=== PATIENT | female | born 1955 | race Hispanic/Latino ===

== ENCOUNTER 2017-07-27 11:09 | Emergency (ER) | payer MEDICARE ==
[2017-07-27 11:39] LABS: BASOPHILS % (AUTO) 0.7 % (0.0-5.0); EOSINOPHILS % (AUTO) 2.2 % (0.0-8.0); LYMPHOCYTES % (AUTO) 16.5 % (21.0-51.0); MEAN CORPUSCULAR HEMOGLOBIN 29.1 pg (27.0-33.0); MEAN CORPUSCULAR HGB CONC 33.8 g/dL (32.0-36.0); MEAN CORPUSCULAR VOLUME 86.2 fL (79-99); MONOCYTES % (AUTO) 6.2 % (3.0-13.0); NEUTROPHILS % (AUTO) 74.4 % (40.0-77.0); PLATELET COUNT (AUTO) 271 K/uL (130-400); RED CELL DISTRIBUTION WIDTH 13.2 % (11.0-15.5); WHITE BLOOD COUNT (AUTO) 10.1 K/uL (4.8-10.8)
[2017-07-27 11:46] LABS: CREATININE 0.7 mg/dL (0.5-1.5); POTASSIUM 3.8 mmol/L (3.5-5.1)
[2017-07-27 11:50] LABS: INR 0.9 (0.85-1.15); PARTIAL THROMBOPLASTIN TIME 26.5 SEC (26.3-35.5); PROTHROMBIN TIME 9.5 SEC (9.6-11.6)
[2017-07-27 12:01] LABS: ALBUMIN 3.6 g/dL (3.5-5.0); BILIRUBIN,TOTAL 0.4 mg/dL (0.2-1.0); CREATINE KINASE MB 1.3 ng/mL (0.5-3.6); TOTAL PROTEIN, SERUM 7.2 g/dL (6.0-8.3)
[2017-07-27] MEDS ORDERED: ASPIRIN 81MG TAB.CHEW ONE (12:51)
[2017-07-27] MEDS ORDERED: SODIUM CHLORIDE 0.9% 250 ML IV ONE (12:52)
== END 2017-07-27 13:39 | disposition home or self-care (01) ==
LOC: EDH 11:09
DX: R07.89 Other chest pain (principal); I25.10 Atherosclerotic heart disease of native coronary artery without angina pectoris; I10 Essential (primary) hypertension; E78.5 Hyperlipidemia, unspecified; Z95.1 Presence of aortocoronary bypass graft
CPT/HCPCS: 36415; 71010; 80053; 82550; 82553; 84484; 85025; 85610; 85730; 93005; 96360; 99285; J7030

== ENCOUNTER 2017-10-24 23:23 | Emergency (ER) | payer MEDICARE ==
[2017-10-25 00:18] LABS: APPEARANCE,URINE Clear (CLEAR); BILIRUBIN,URINE Negative (NEGATIVE); COLOR,URINE Yellow (YELLOW); GLUCOSE, URINE (UA) Negative (NEGATIVE); KETONES,URINE Negative (NEGATIVE); LEUKOCYTE ESTERASE ,URINE Trace (NEGATIVE); NITRATE,URINE Negative (NEGATIVE); OCCULT BLOOD,URINE Negative (NEGATIVE); PROTEIN,URINE Negative (NEGATIVE)
[2017-10-25] MEDS ORDERED: HYDROCODONE/ACETAMINOPHEN 5/325 MG TAB ONE (00:26)
[2017-10-25 00:36] LABS: BACTERIA,URINE None Seen /HPF (None Seen); HYALINE CASTS, URINE 0-1 /LPF (0-1 /LPF); MUCUS,URINE Few LPF (None Seen); RBC,URINE 0-1 /HPF (0-1); WBC,URINE 0-1 /HPF (0-1)
[2017-10-25 01:08] LABS: BASOPHILS % (AUTO) 0.8 % (0.0-5.0); EOSINOPHILS % (AUTO) 2.6 % (0.0-8.0); HEMATOCRIT 42.1 % (36-48); LYMPHOCYTES % (AUTO) 25.4 % (21.0-51.0); MEAN CORPUSCULAR HEMOGLOBIN 29.1 pg (27.0-33.0); MEAN CORPUSCULAR HGB CONC 34.3 g/dL (32.0-36.0); MEAN CORPUSCULAR VOLUME 84.9 fL (79-99); MONOCYTES % (AUTO) 7.8 % (3.0-13.0); NEUTROPHILS % (AUTO) 63.4 % (40.0-77.0); PLATELET COUNT (AUTO) 376 K/uL (130-400); RED BLOOD CELL COUNT(AUTO) 4.96 MIL/uL (4.00-5.50); RED CELL DISTRIBUTION WIDTH 13.1 % (11.0-15.5); WHITE BLOOD COUNT (AUTO) 10.3 K/uL (4.8-10.8)
[2017-10-25 01:16] LABS: CARBON DIOXIDE 29 mmol/L (21-32); CHLORIDE 105 mmol/L (101-111); CREATININE 0.9 mg/dL (0.5-1.5); GLOMERULAR FILTR. RATE CALC 67 mL/min (>60); GLUCOSE,RANDOM 131 mg/dL (70-105); POTASSIUM 3.7 mmol/L (3.5-5.1); SODIUM SERUM 144 mmol/L (136-145); UREA NITROGEN, BLOOD 22 mg/dL (7-18)
[2017-10-25 01:20] LABS: ALANINE AMINOTRANSFERASE 19 U/L (12-78); ALBUMIN 3.8 g/dL (3.5-5.0); ASPARTATE AMINOTRANSFERASE 14 U/L (10-37); BILIRUBIN,TOTAL 0.3 mg/dL (0.2-1.0); TOTAL PROTEIN, SERUM 7.7 g/dL (6.0-8.3)
[2017-10-25 01:23] LABS: LIPASE < 50 U/L (114-286)
[2017-10-25] MEDS ORDERED: KETOROLAC TROMETHAMINE 15MG/ML ONE (01:28)
== END 2017-10-25 03:07 | disposition home or self-care (01) ==
LOC: EDH 23:23
DX: R10.31 Right lower quadrant pain (principal); H57.8 Other specified disorders of eye and adnexa; R20.2 Paresthesia of skin
CPT/HCPCS: 36415; 70450; 74176; 80053; 81001; 83690; 85025; 96374; 99285; J1885

== ENCOUNTER 2017-11-19 20:16 | Emergency (ER) | payer MEDICARE ==
[2017-11-19 21:10] LABS: BASOPHILS % (AUTO) 0.6 % (0.0-5.0); EOSINOPHILS % (AUTO) 0.1 % (0.0-8.0); HEMATOCRIT 40.1 % (36-48); LYMPHOCYTES % (AUTO) 7.3 % (21.0-51.0); MEAN CORPUSCULAR HEMOGLOBIN 29.3 pg (27.0-33.0); MEAN CORPUSCULAR HGB CONC 34.3 g/dL (32.0-36.0); MEAN CORPUSCULAR VOLUME 85.4 fL (79-99); MONOCYTES % (AUTO) 2.2 % (3.0-13.0); NEUTROPHILS % (AUTO) 89.8 % (40.0-77.0); PLATELET COUNT (AUTO) 366 K/uL (130-400); RED BLOOD CELL COUNT(AUTO) 4.69 MIL/uL (4.00-5.50); RED CELL DISTRIBUTION WIDTH 13.2 % (11.0-15.5); WHITE BLOOD COUNT (AUTO) 13.3 K/uL (4.8-10.8)
[2017-11-19 21:21] LABS: POTASSIUM 4.4 mmol/L (3.5-5.1)
[2017-11-19 21:26] LABS: ALBUMIN 3.6 g/dL (3.5-5.0); BILIRUBIN,TOTAL 0.2 mg/dL (0.2-1.0); TOTAL PROTEIN, SERUM 7.5 g/dL (6.0-8.3)
== END 2017-11-20 02:24 | disposition home or self-care (01) ==
LOC: EDH 20:16
DX: G97.1 Other reaction to spinal and lumbar puncture (principal); R53.1 Weakness; R20.2 Paresthesia of skin; I25.10 Atherosclerotic heart disease of native coronary artery without angina pectoris; I10 Essential (primary) hypertension; E78.00 Pure hypercholesterolemia, unspecified; M81.0 Age-related osteoporosis without current pathological fracture; Z95.1 Presence of aortocoronary bypass graft
CPT/HCPCS: 36415; 72148; 80053; 85025

== ENCOUNTER → 2018-01-04 | Outpatient (CLI) | payer MEDICARE ==
[~2018-01-04] MED LIST: AMLODIPINE DAILY PO; CLIN300C9 PO; DULOXETINE; ISOS30TA6 PO; LISI-617 PO; PREGABALIN; SIMV40TA59 PO
== END | disposition home or self-care (01) ==
LOC: SHCH 11:56
PROVIDERS: ATTEND Internal Medicine Cardiovascular Disease
DX: R09.89 Other specified symptoms and signs involving the circulatory and respiratory systems (principal); I65.23 Occlusion and stenosis of bilateral carotid arteries
CPT/HCPCS: 93880

== ENCOUNTER → 2018-01-07 | Outpatient (CLI) | payer MEDICARE | END | disposition home or self-care (01) | LOC: SHCH 10:19 | PROVIDERS: ATTEND Internal Medicine Cardiovascular Disease | DX: R07.9 Chest pain, unspecified (principal); R06.02 Shortness of breath | CPT/HCPCS: 93306 ==

== ENCOUNTER 2018-01-15 21:10 | Observation (INO) | payer MEDICARE ==
[~2018-01-15] VITALS: Ht 152.4 cm; Wt 57.6 kg
[2018-01-15 21:57] LABS: BASOPHILS % (AUTO) 0.9 % (0.0-5.0); EOSINOPHILS % (AUTO) 2.8 % (0.0-8.0); HEMATOCRIT 36.5 % (36-48); LYMPHOCYTES % (AUTO) 22.3 % (21.0-51.0); MEAN CORPUSCULAR HEMOGLOBIN 29.3 pg (27.0-33.0); MEAN CORPUSCULAR HGB CONC 34.4 g/dL (32.0-36.0); MEAN CORPUSCULAR VOLUME 85.2 fL (79-99); MONOCYTES % (AUTO) 6.4 % (3.0-13.0); NEUTROPHILS % (AUTO) 67.6 % (40.0-77.0); PLATELET COUNT (AUTO) 310 K/uL (130-400); RED BLOOD CELL COUNT(AUTO) 4.28 MIL/uL (4.00-5.50); RED CELL DISTRIBUTION WIDTH 13.3 % (11.0-15.5); WHITE BLOOD COUNT (AUTO) 10.1 K/uL (4.8-10.8)
[2018-01-15 22:07] LABS: CREATININE 0.9 mg/dL (0.5-1.5); POTASSIUM 3.9 mmol/L (3.5-5.1)
[2018-01-15 22:08] LABS: INR 0.93 (0.85-1.15); PARTIAL THROMBOPLASTIN TIME 26.8 SEC (26.3-35.5); PROTHROMBIN TIME 9.8 SEC (9.6-11.6)
[2018-01-15 22:20] LABS: ALBUMIN 3.6 g/dL (3.5-5.0); BILIRUBIN,TOTAL 0.3 mg/dL (0.2-1.0); CREATINE KINASE MB 0.6 ng/mL (0.5-3.6); TOTAL PROTEIN, SERUM 7.2 g/dL (6.0-8.3)
[2018-01-15] MEDS ORDERED: MECLIZINE HCL 25 MG TABLET ONE (23:01)
[2018-01-16] MEDS ORDERED: CLONIDINE HCL 0.1 MG TABLET ONE ×2 (00:09→00:13)
[2018-01-16] MEDS ORDERED: KETOROLAC TROMETHAMINE 15MG/ML ONE (00:09)
[2018-01-16] MEDS ORDERED: ONDANSETRON HCL MDV 20ML 2 MG/ML VIAL IVP PRN (00:45)
[2018-01-16 05:14] LABS: BASOPHILS % (AUTO) 0.9 % (0.0-5.0); HEMATOCRIT 34.7 % (36-48); LYMPHOCYTES % (AUTO) 29.4 % (21.0-51.0); MEAN CORPUSCULAR HEMOGLOBIN 29.6 pg (27.0-33.0); MEAN CORPUSCULAR VOLUME 84.6 fL (79-99); MONOCYTES % (AUTO) 6.5 % (3.0-13.0); NEUTROPHILS % (AUTO) 60.2 % (40.0-77.0); PLATELET COUNT (AUTO) 319 K/uL (130-400); RED BLOOD CELL COUNT(AUTO) 4.11 MIL/uL (4.00-5.50); WHITE BLOOD COUNT (AUTO) 8.6 K/uL (4.8-10.8)
[2018-01-16 05:23] LABS: ALBUMIN 3.2 g/dL (3.5-5.0); BILIRUBIN,TOTAL 0.3 mg/dL (0.2-1.0); CREATININE 0.7 mg/dL (0.5-1.5); POTASSIUM 3.4 mmol/L (3.5-5.1); TOTAL PROTEIN, SERUM 6.5 g/dL (6.0-8.3)
[2018-01-16] MEDS: FAMOTIDINE/PF 20 MG/2 ML VIAL IV SCH ×2 (09:00→20:16)
[2018-01-16] MEDS ORDERED: FAMOTIDINE/PF 20 MG/2 ML VIAL IV ONE (10:27)
[2018-01-16] MEDS ORDERED: MECLIZINE HCL 25 MG TABLET ONE (10:27)
[2018-01-16] MEDS ORDERED: PREGABALIN (15:25)
[2018-01-16] MEDS ORDERED: CLIN300C9 PO (15:25)
[2018-01-16] MEDS ORDERED: SIMV40TA59 PO (15:25)
[2018-01-16] MEDS ORDERED: ISOS30TA6 PO (15:25)
[2018-01-16] MEDS ORDERED: DULOXETINE (15:25)
[2018-01-16] MEDS ORDERED: AMLODIPINE DAILY PO (15:25)
[2018-01-16 15:47] VITALS: BP 182/89
[2018-01-16] MEDS: HYDRALAZINE HCL 20 MG/ML VIAL IV PRN ×2 (16:57→23:24)
[2018-01-16 19:00] VITALS: BP 161/71
[2018-01-17] VITALS: BP 178/85
[2018-01-17] MEDS ORDERED: MORPHINE SULFATE 2 MG/ML 1ML SYG IVP PRN
[2018-01-17] MEDS ORDERED: ACETAMINOPHEN 325 MG TAB PO PRN
[2018-01-17] MEDS ORDERED: ACETAMINOPHEN 325 MG TAB ONE (00:11)
[2018-01-17] MEDS ORDERED: HYDRALAZINE HCL 20 MG/ML VIAL IV PRN (00:15)
[2018-01-17 00:44] LABS: CREATINE KINASE MB 0.9 ng/mL (0.5-3.6); CREATINE KINASE, TOTAL 43 U/L (21-232); MYOGLOBIN 18 ng/mL (10-92); TROPONIN I < 0.04 ng/mL (0.00-0.06)
[2018-01-17 05:00] VITALS: BP 146/69
[2018-01-17 07:40] VITALS: BP 141/87
[2018-01-17] MEDS ORDERED: MECLIZINE HCL 25 MG TABLET PO SCH (09:00)
[2018-01-17] MEDS: FAMOTIDINE/PF 20 MG/2 ML VIAL IV SCH (09:02)
[2018-01-17 11:47] VITALS: BP 147/90
[2018-01-17] MEDS ORDERED: LISINOPRIL 5 MG TABLET PO SCH (13:30)
[2018-01-17] MEDS ORDERED: LISI-617 PO (13:30)
[2018-01-17] MEDS ORDERED: POTASSIUM CHLORIDE 20 MEQ ERTAB PO SCH (14:00)
[2018-01-18] MEDS ORDERED: ALPRAZOLAM 0.25 MG TABLET PO SCH (09:00)
== END 2018-01-17 17:08 | disposition home or self-care (01) ==
LOC: EDH 21:10 → EDHIP 01-16 00:18 → 3AH 01-16 15:05
PROVIDERS: ADMIT Internal Medicine Nephrology; ATTEND Internal Medicine Nephrology
DX: I10 Essential (primary) hypertension (principal); I25.10 Atherosclerotic heart disease of native coronary artery without angina pectoris; E78.5 Hyperlipidemia, unspecified; M81.0 Age-related osteoporosis without current pathological fracture; F41.9 Anxiety disorder, unspecified; Z95.1 Presence of aortocoronary bypass graft; Z86.73 Personal history of transient ischemic attack (TIA), and cerebral infarction without residual deficits; Z82.49 Family history of ischemic heart disease and other diseases of the circulatory system; Z79.899 Other long term (current) drug therapy
CPT/HCPCS: 36415 ×3; 70450; 71045; 80053 ×2; 82550 ×2; 82553 ×2; 83874 ×2; 84484 ×2; 85025 ×2; 85610; 85730; 93005; 96374; 96375; 96376 ×2; 99285; G0378 ×41; J0360 ×2; J1885; J3490 ×3

== ENCOUNTER → 2018-02-16 | Outpatient (CLI) | payer MEDICARE ==
[~2018-02-16] MED LIST changes: +REGADENOSON 0.4 MG/5 ML PF SYG IVP SCH
== END | disposition home or self-care (01) ==
LOC: SHCH 08:31
PROVIDERS: ATTEND Internal Medicine Cardiovascular Disease
DX: I25.119 Atherosclerotic heart disease of native coronary artery with unspecified angina pectoris (principal)
CPT/HCPCS: 78452; 93017; 96374; A9500 ×2; J2785

== ENCOUNTER 2018-05-17 18:27 | Emergency (ER) | payer MEDICARE ==
[~2018-05-17 18:27] MED LIST changes: -REGADENOSON 0.4 MG/5 ML PF SYG IVP SCH
[2018-05-17 19:15] LABS: BASOPHILS % (AUTO) 0.3 % (0.0-5.0); EOSINOPHILS % (AUTO) 3.5 % (0.0-8.0); HEMATOCRIT 39.3 % (36-48); LYMPHOCYTES % (AUTO) 22.4 % (21.0-51.0); MEAN CORPUSCULAR HEMOGLOBIN 29.2 pg (27.0-33.0); MEAN CORPUSCULAR HGB CONC 34.5 g/dL (32.0-36.0); MEAN CORPUSCULAR VOLUME 84.8 fL (79-99); MONOCYTES % (AUTO) 9.2 % (3.0-13.0); NEUTROPHILS % (AUTO) 64.6 % (40.0-77.0); PLATELET COUNT (AUTO) 321 K/uL (130-400); RED BLOOD CELL COUNT(AUTO) 4.64 MIL/uL (4.00-5.50); WHITE BLOOD COUNT (AUTO) 9.1 K/uL (4.8-10.8)
[2018-05-17 19:29] LABS: CREATININE 1.1 mg/dL (0.5-1.5); POTASSIUM 3.4 mmol/L (3.5-5.1)
[2018-05-17 19:35] LABS: ALBUMIN 3.7 g/dL (3.5-5.0); BILIRUBIN,TOTAL 0.5 mg/dL (0.2-1.0); TOTAL PROTEIN, SERUM 7.5 g/dL (6.0-8.3)
[2018-05-17 19:58] LABS: APPEARANCE,URINE Cloudy (CLEAR); BILIRUBIN,URINE Negative (NEGATIVE); COLOR,URINE Dark Yellow (YELLOW); GLUCOSE, URINE (UA) Negative (NEGATIVE); KETONES,URINE Trace mg/dL (NEGATIVE); LEUKOCYTE ESTERASE ,URINE Moderate (NEGATIVE); NITRATE,URINE Negative (NEGATIVE); OCCULT BLOOD,URINE Small (NEGATIVE); PH,URINE 5.5 (5.0-8.0); PROTEIN,URINE POS 1+ (NEGATIVE)
[2018-05-17] MEDS ORDERED: SODIUM CHLORIDE 0.9% 1000ML 1,000 ML IV ONE (20:19)
[2018-05-17] MEDS ORDERED: ONDANSETRON HCL 4 MG/2 ML VIAL ONE (20:19)
[2018-05-17 20:49] LABS: BACTERIA,URINE Few /HPF (None Seen); WBC,URINE 26-50 /HPF (0-1)
[2018-05-17 20:52] LABS: MUCUS,URINE Moderate LPF (None Seen); SQUAMOUS EPITHELIAL CELL,UR Rare /HPF (0-2)
[2018-05-17] MEDS ORDERED: LEVOFLOXACIN 500 MG TABLET ONE (21:30)
== END 2018-05-17 21:39 | disposition home or self-care (01) ==
LOC: EDH 18:27
DX: A09 Infectious gastroenteritis and colitis, unspecified (principal); E86.0 Dehydration; N39.0 Urinary tract infection, site not specified; E78.00 Pure hypercholesterolemia, unspecified; I10 Essential (primary) hypertension; I25.10 Atherosclerotic heart disease of native coronary artery without angina pectoris; M81.0 Age-related osteoporosis without current pathological fracture
CPT/HCPCS: 36415; 74176; 80053; 81001; 82150; 82270; 83690; 85025; 87046; 87077; 87088; 87186; 87205; 96361; 96374; 99285; J2405; J7030

== ENCOUNTER → 2018-07-19 | Outpatient (CLI) | payer MEDICARE ==
[~2018-07-19] VITALS: Ht 152.4 cm; Wt 57.6 kg
[~2018-07-19] MED LIST changes: +REGADENOSON 0.4 MG/5 ML PF SYG IVP SCH
== END | disposition home or self-care (01) ==
LOC: SHCH 08:47
PROVIDERS: ATTEND Internal Medicine Cardiovascular Disease
DX: I25.119 Atherosclerotic heart disease of native coronary artery with unspecified angina pectoris (principal)
CPT/HCPCS: 78452; 93017; A9500 ×2; J2785

== ENCOUNTER 2019-07-04 18:29 | Inpatient (IN) | payer MEDICARE ==
[~2019-07-04] VITALS: Ht 152.4 cm; Wt 55.2 kg
[~2019-07-04 18:29] MED LIST changes: -REGADENOSON 0.4 MG/5 ML PF SYG IVP SCH
[2019-07-04 19:16] LABS: BASOPHILS % (AUTO) 1.1 % (0.0-5.0); EOSINOPHILS % (AUTO) 3.4 % (0.0-8.0); HEMATOCRIT 38.8 % (36-48); LYMPHOCYTES % (AUTO) 24.3 % (21.0-51.0); MEAN CORPUSCULAR HEMOGLOBIN 29.4 pg (27.0-33.0); MEAN CORPUSCULAR HGB CONC 34.6 g/dL (32.0-36.0); MONOCYTES % (AUTO) 7.7 % (3.0-13.0); NEUTROPHILS % (AUTO) 63.5 % (40.0-77.0); PLATELET COUNT (AUTO) 324 K/uL (130-400); RED BLOOD CELL COUNT(AUTO) 4.56 MIL/uL (4.00-5.50); RED CELL DISTRIBUTION WIDTH 12.6 % (11.0-15.5)
[2019-07-04] MEDS ORDERED: ASPIRIN 325 MG TABLET ONE (19:17)
[2019-07-04] MEDS ORDERED: HYDROCODONE/ACETAMINOPHEN 10/325 MG TAB ONE (19:18)
[2019-07-04 19:25] LABS: CREATININE 0.7 mg/dL (0.5-1.5); POTASSIUM 3.3 mmol/L (3.5-5.1)
[2019-07-04] MEDS ORDERED: POTASSIUM CHLORIDE 20 MEQ ERTAB PO ONE (19:52)
[2019-07-04] MEDS ORDERED: ONDANSETRON HCL 4 MG/2 ML VIAL IV PRN (20:45)
[2019-07-04] MEDS ORDERED: LACTULOSE 20 GM/30 ML UDCUP PO PRN (20:45)
[2019-07-04] MEDS ORDERED: ACETAMINOPHEN 325 MG TAB PO PRN ×2 (20:45)
[2019-07-04] MEDS: METOPROLOL TARTRATE 25 MG TAB PO SCH (21:00)
[2019-07-04] MEDS: FAMOTIDINE 20MG TAB 20 MG TAB PO SCH (21:00)
[2019-07-04] MEDS ORDERED: MECLIZINE HCL 25 MG TABLET PO PRN (21:00)
[2019-07-04] MEDS: ATORVASTATIN CALCIUM 20 MG TABLET PO SCH (21:00)
[2019-07-04] MEDS ORDERED: FAMOTIDINE 20MG TAB 20 MG TAB ONE (21:04)
[2019-07-04] MEDS ORDERED: ATORVASTATIN CALCIUM 20 MG TABLET ONE (21:04)
[2019-07-04] MEDS ORDERED: METOPROLOL TARTRATE 25 MG TAB ONE (21:04)
[2019-07-05 06:51] LABS: BASOPHILS % (AUTO) 2.5 % (0.0-5.0); EOSINOPHILS % (AUTO) 4.1 % (0.0-8.0); HEMATOCRIT 39.3 % (36-48); LYMPHOCYTES % (AUTO) 29.1 % (21.0-51.0); MEAN CORPUSCULAR HEMOGLOBIN 28.9 pg (27.0-33.0); MEAN CORPUSCULAR HGB CONC 34.2 g/dL (32.0-36.0); MEAN CORPUSCULAR VOLUME 84.4 fL (79-99); MONOCYTES % (AUTO) 9.1 % (3.0-13.0); NEUTROPHILS % (AUTO) 55.2 % (40.0-77.0); PLATELET COUNT (AUTO) 341 K/uL (130-400); RED BLOOD CELL COUNT(AUTO) 4.65 MIL/uL (4.00-5.50); RED CELL DISTRIBUTION WIDTH 12.6 % (11.0-15.5); WHITE BLOOD COUNT (AUTO) 7.6 K/uL (4.8-10.8)
[2019-07-05 06:59] LABS: CREATININE 0.7 mg/dL (0.5-1.5)
[2019-07-05] MEDS ORDERED: ENOXAPARIN SODIUM 40 MG/0.4 ML SYRINGE SQ ONE (07:58)
[2019-07-05] MEDS ORDERED: ASPIRIN 81MG TAB.CHEW ONE (07:58)
[2019-07-05] MEDS ORDERED: METOPROLOL TARTRATE 25 MG TAB ONE ×2 (07:59→21:04)
[2019-07-05] MEDS: ENOXAPARIN SODIUM 40 MG/0.4 ML SYRINGE SQ SCH (09:00)
[2019-07-05] MEDS: ASPIRIN 325 MG TABLET PO SCH (09:00)
--- NOTE | 2019-07-05 11:37 | NUR ---
DCP: HOME SW met with pt who states her 16yro kathryn Morrison [phone] lives with her. Pt states she is independent of all ADLS, uses no DME or in home care services. Pt denies dc needs and plan is home at dc Addendum: 07/05/19 at 1139 by CARLOS FINCH SS Amended: Links added.
--- NOTE | 2019-07-05 14:47 | NUR ---
1331 had pt sign IM Letter and faxed to [phone].
[2019-07-05] MEDS: ATORVASTATIN CALCIUM 20 MG TABLET PO SCH (21:00)
[2019-07-05] MEDS: METOPROLOL TARTRATE 25 MG TAB PO SCH (21:00)
[2019-07-05] MEDS: FAMOTIDINE 20MG TAB 20 MG TAB PO SCH (21:00)
[2019-07-05] MEDS ORDERED: FAMOTIDINE 20MG TAB 20 MG TAB ONE (21:03)
[2019-07-05] MEDS ORDERED: ATORVASTATIN CALCIUM 20 MG TABLET ONE (21:04)
[2019-07-05 21:32] VITALS: BP 151/106
[2019-07-05 23:22] VITALS: BP 129/64
[2019-07-06 03:42] LABS: BASOPHILS % (AUTO) 0.9 % (0.0-5.0); EOSINOPHILS % (AUTO) 4.6 % (0.0-8.0); HEMATOCRIT 40.1 % (36-48); MEAN CORPUSCULAR HEMOGLOBIN 29.9 pg (27.0-33.0); MEAN CORPUSCULAR VOLUME 85.6 fL (79-99); MONOCYTES % (AUTO) 7.2 % (3.0-13.0); NEUTROPHILS % (AUTO) 61.3 % (40.0-77.0); NUCLEATED RED BLOOD CELLS 0.1 % (0.0-0.19); PLATELET COUNT (AUTO) 320 K/uL (130-400); RED BLOOD CELL COUNT(AUTO) 4.68 MIL/uL (4.00-5.50); RED CELL DISTRIBUTION WIDTH 12.5 % (11.0-15.5); WHITE BLOOD COUNT (AUTO) 9.6 K/uL (4.8-10.8)
[2019-07-06 03:54] VITALS: BP 147/79
[2019-07-06 04:02] LABS: ALBUMIN 3.4 g/dL (3.5-5.0); BILIRUBIN,TOTAL 0.3 mg/dL (0.2-1.0); CREATININE 0.7 mg/dL (0.5-1.5); TOTAL PROTEIN, SERUM 6.9 g/dL (6.0-8.3)
[2019-07-06 06:56] VITALS: BP 141/81
[2019-07-06] MEDS ORDERED: REGADENOSON 0.4 MG/5 ML PF SYG IVP SCH (08:30)
[2019-07-06 11:56] VITALS: BP 156/84
[2019-07-06] MEDS: ASPIRIN 325 MG TABLET PO SCH ×2 (12:33→12:54)
[2019-07-06] MEDS: METOPROLOL TARTRATE 25 MG TAB PO SCH ×3 (12:33→21:50)
[2019-07-06] MEDS: FAMOTIDINE 20MG TAB 20 MG TAB PO SCH ×3 (12:33→21:50)
[2019-07-06] MEDS: ENOXAPARIN SODIUM 40 MG/0.4 ML SYRINGE SQ SCH ×2 (12:34→12:56)
[2019-07-06 15:19] VITALS: BP 137/94
--- NOTE | 2019-07-06 21:45 | NUR ---
ASSESSMENT PT AAOX4, PLEASANT COOPERATIVE. RHYTHM: NSR. ROOM AIR. WHITE BOARD UP-DATED, BEDSIDE MONITOR PARAMETERS REVIEWED AND ADJUSTED. SCD IN PLACE. CALLBELL REVIEWED WITH PT AND WITHIN REACH. ASSESSMENT COMPLETED, PLEASE SEE FLOW SHEET.
[2019-07-06] MEDS: ATORVASTATIN CALCIUM 20 MG TABLET PO SCH (21:50)
[2019-07-07] VITALS: BP 141/73
[2019-07-07 04:00] VITALS: BP 142/69
[2019-07-07 05:15] LABS: BASOPHILS % (AUTO) 0.8 % (0.0-5.0); HEMATOCRIT 39.6 % (36-48); LYMPHOCYTES % (AUTO) 25.7 % (21.0-51.0); MEAN CORPUSCULAR HEMOGLOBIN 29.3 pg (27.0-33.0); MEAN CORPUSCULAR HGB CONC 34.5 g/dL (32.0-36.0); MEAN CORPUSCULAR VOLUME 84.9 fL (79-99); MONOCYTES % (AUTO) 8.3 % (3.0-13.0); NEUTROPHILS % (AUTO) 61.2 % (40.0-77.0); PLATELET COUNT (AUTO) 363 K/uL (130-400); RED BLOOD CELL COUNT(AUTO) 4.67 MIL/uL (4.00-5.50); RED CELL DISTRIBUTION WIDTH 12.7 % (11.0-15.5); WHITE BLOOD COUNT (AUTO) 8.9 K/uL (4.8-10.8)
[2019-07-07 05:32] LABS: CREATININE 0.9 mg/dL (0.5-1.5); POTASSIUM 3.8 mmol/L (3.5-5.1)
[2019-07-07 07:26] VITALS: BP 116/71
[2019-07-07] MEDS: METOPROLOL TARTRATE 25 MG TAB PO SCH (10:31)
[2019-07-07] MEDS: ASPIRIN 325 MG TABLET PO SCH (10:31)
[2019-07-07] MEDS: ENOXAPARIN SODIUM 40 MG/0.4 ML SYRINGE SQ SCH (10:31)
[2019-07-07] MEDS: FAMOTIDINE 20MG TAB 20 MG TAB PO SCH (10:31)
[2019-07-07 10:54] VITALS: BP 130/71
[2019-07-07] MEDS ORDERED: ASPI-1012 PO (13:10)
[2019-07-07] MEDS ORDERED: LISI-617 PO (13:10)
[2019-07-07] MEDS ORDERED: SIMV40TA59 PO (13:10)
[2019-07-07] MEDS ORDERED: METO25 PO (13:10)
[2019-07-07] MEDS ORDERED: ISOS30TA6 PO (13:10)
--- NOTE | 2019-07-07 14:22 | NUR ---
Discharge instructions/.information given to patient. all questions answered. Teach back method used to educate patient on diet, new meds, blood pressure control, and appointments. Patient requested for Flu vaccine on admission but now refuses dose. She said she will get vaccine from Dr. Andres's office. All belongings packed. ALl new prescriptions were electronically transmitted.
[2019-07-07] MEDS ORDERED: SIMVASTATIN 20 MG TABLET PO SCH (21:00)
[2019-07-07] MEDS ORDERED: LISINOPRIL 5 MG TABLET PO SCH (21:00)
[2019-07-08] MEDS ORDERED: ISOSORBIDE MONO 30MG TAB SR PO SCH (09:00)
== END 2019-07-07 14:41 | disposition home or self-care (01) | DRG 313 ==
LOC: EDH 18:29 → EDHIP 20:33 → OBSVTOIN 20:33 → 2BH 07-05 21:18
PROVIDERS: ADMIT Internal Medicine; ATTEND Internal Medicine
DX: R07.9 Chest pain, unspecified (principal); R94.31 Abnormal electrocardiogram [ECG] [EKG]; M54.2 Cervicalgia; I10 Essential (primary) hypertension; K21.9 Gastro-esophageal reflux disease without esophagitis; E78.5 Hyperlipidemia, unspecified; I25.10 Atherosclerotic heart disease of native coronary artery without angina pectoris; E78.00 Pure hypercholesterolemia, unspecified; M81.0 Age-related osteoporosis without current pathological fracture; F41.9 Anxiety disorder, unspecified; Z95.1 Presence of aortocoronary bypass graft; Z87.11 Personal history of peptic ulcer disease; Z86.73 Personal history of transient ischemic attack (TIA), and cerebral infarction without residual deficits; Z82.3 Family history of stroke; Z82.5 Family history of asthma and other chronic lower respiratory diseases; Z82.49 Family history of ischemic heart disease and other diseases of the circulatory system; Z82.41 Family history of sudden cardiac death; Z80.9 Family history of malignant neoplasm, unspecified
CPT/HCPCS: 36415; 70450; 72125; 78452; 80048; 80053; 84484; 85025; 93005; 93017; 93306; 93880; 96374; 99291; A9500; G0378; J1650; J2785

== ENCOUNTER → 2020-08-20 | Outpatient (CLI) | payer MEDICARE ==
[~2020-08-20] MED LIST changes: -AMLODIPINE DAILY PO; +ASPI-1012 PO; +CLIN300C10 PO; -CLIN300C9 PO; -DULOXETINE; +METO25 PO; -PREGABALIN
== END | disposition home or self-care (01) ==
LOC: SHCH 15:23
PROVIDERS: ATTEND Internal Medicine Cardiovascular Disease
DX: I87.2 Venous insufficiency (chronic) (peripheral) (principal); I73.9 Peripheral vascular disease, unspecified
CPT/HCPCS: 93970

== ENCOUNTER 2021-12-28 16:41 | Emergency (ER) | payer OTHER, MEDICARE ==
[~2021-12-28] VITALS: Ht 152.4 cm; Wt 52.6 kg
[~2021-12-28 16:41] MED LIST changes: +CLIN-141 PO; -CLIN300C10 PO; -ISOS30TA6 PO; +ISOS30TA92 PO; -LISI-617 PO; +LISI5TAB21 PO
[2021-12-28] MEDS ORDERED: MECLIZINE HCL 25 MG TABLET PO SCH (17:00)
[2021-12-28 17:30] LABS: BASOPHILS % (AUTO) 0.9 % (0.0-5.0); EOSINOPHILS % (AUTO) 2.4 % (0.0-8.0); HEMATOCRIT 39.2 % (36-48); LYMPHOCYTES % (AUTO) 20.8 % (21.0-51.0); MEAN CORPUSCULAR HEMOGLOBIN 28.5 pg (27.0-33.0); MEAN CORPUSCULAR HGB CONC 34.2 g/dL (32.0-36.0); MEAN CORPUSCULAR VOLUME 83.2 fL (79-99); MONOCYTES % (AUTO) 7.6 % (3.0-13.0); PLATELET COUNT (AUTO) 293 K/uL (130-400); RED BLOOD CELL COUNT(AUTO) 4.71 MIL/uL (4.00-5.50); WHITE BLOOD COUNT (AUTO) 7.5 K/uL (4.8-10.8)
[2021-12-28 17:47] LABS: CREATININE 0.7 mg/dL (0.5-1.5); POTASSIUM 3.9 mmol/L (3.5-5.1)
[2021-12-28 17:50] LABS: APPEARANCE,URINE Clear (CLEAR); BILIRUBIN,URINE Negative (NEGATIVE); COLOR,URINE Yellow (YELLOW); GLUCOSE, URINE (UA) Negative (NEGATIVE); KETONES,URINE Trace mg/dL (NEGATIVE); LEUKOCYTE ESTERASE ,URINE Negative (NEGATIVE); NITRATE,URINE Negative (NEGATIVE); OCCULT BLOOD,URINE Negative (NEGATIVE); PH,URINE 5.5 (5.0-8.0); PROTEIN,URINE Negative (NEGATIVE); UROBILINOGEN,URINE 0.2 mg/dL (0.2-1.0)
[2021-12-28 17:56] LABS: ALBUMIN 4.2 g/dL (3.5-5.0); BILIRUBIN,TOTAL 0.6 mg/dL (0.2-1.0); TOTAL PROTEIN, SERUM 7.6 g/dL (6.0-8.3)
[2021-12-28] MEDS ORDERED: MECL-226 PO (18:37)
[2021-12-28 18:41] VITALS: BP 137/78
== END 2021-12-28 18:49 | disposition home or self-care (01) ==
LOC: EDH 16:41
DX: R42 Dizziness and giddiness (principal); I10 Essential (primary) hypertension; I25.10 Atherosclerotic heart disease of native coronary artery without angina pectoris; Z98.890 Other specified postprocedural states; Z79.899 Other long term (current) drug therapy; Z79.82 Long term (current) use of aspirin
CPT/HCPCS: 36415; 70450; 80053; 81003; 84484; 85025; 93005

== ENCOUNTER 2022-03-30 05:05 | Emergency (ER) | payer OTHER, MEDICARE ==
[~2022-03-30] VITALS: Ht 152.4 cm; Wt 53.1 kg
[~2022-03-30 05:05] MED LIST changes: +MECL-226 PO
[2022-03-30 05:38] LABS: BASOPHILS % (AUTO) 0.6 % (0.0-5.0); EOSINOPHILS % (AUTO) 3.5 % (0.0-8.0); LYMPHOCYTES % (AUTO) 18.6 % (21.0-51.0); MEAN CORPUSCULAR HEMOGLOBIN 29.3 pg (27.0-33.0); MEAN CORPUSCULAR HGB CONC 34.6 g/dL (32.0-36.0); MEAN CORPUSCULAR VOLUME 84.8 fL (79-99); MONOCYTES % (AUTO) 7.9 % (3.0-13.0); NEUTROPHILS % (AUTO) 69.2 % (40.0-77.0); PLATELET COUNT (AUTO) 297 K/uL (130-400); RED CELL DISTRIBUTION WIDTH 12.5 % (11.0-15.5); WHITE BLOOD COUNT (AUTO) 9.4 K/uL (4.8-10.8)
[2022-03-30 05:39] LABS: APPEARANCE,URINE CLEAR (CLEAR); BILIRUBIN,URINE NEGATIVE (NEGATIVE); COLOR,URINE YELLOW (YELLOW); GLUCOSE, URINE (UA) NEGATIVE (NEGATIVE); KETONES,URINE NEGATIVE (NEGATIVE); LEUKOCYTE ESTERASE ,URINE NEGATIVE (NEGATIVE); NITRATE,URINE NEGATIVE (NEGATIVE); OCCULT BLOOD,URINE NEGATIVE (NEGATIVE); PH,URINE 5.5 (5.0-8.0); PROTEIN,URINE NEGATIVE (NEGATIVE); UROBILINOGEN,URINE 0.2 mg/dL (0.2-1.0)
[2022-03-30 05:52] LABS: CREATININE 0.7 mg/dL (0.5-1.5); POTASSIUM 3.9 mmol/L (3.5-5.1)
[2022-03-30 05:57] LABS: ALBUMIN 4.2 g/dL (3.5-5.0); TOTAL PROTEIN, SERUM 7.7 g/dL (6.0-8.3)
[2022-03-30] MEDS ORDERED: 0.9% NACL 500ML IV.SOLN 500 ML IV ONE (06:00)
[2022-03-30] MEDS ORDERED: ONDANSETRON 4MG INJ IVP ONE (06:00)
[2022-03-30] MEDS ORDERED: FAMOTIDINE 20MG VIAL IV ONE ×2 (06:00→06:01)
[2022-03-30] MEDS ORDERED: CETIRIZINE HCL 5 MG TABLET PO ONE ×2 (06:01→09:00)
[2022-03-30 06:41] VITALS: BP 139/59
[2022-03-30] MEDS ORDERED: FLUT16H NASAL (06:49)
[2022-03-30] MEDS ORDERED: FAMO-136 PO (06:49)
[2022-03-30] MEDS ORDERED: LORA-1339 PO (06:49)
[2022-03-30] MEDS ORDERED: ONDA4TAB10 PO (06:49)
== END 2022-03-30 06:58 | disposition home or self-care (01) ==
LOC: EDH 05:05
DX: B34.9 Viral infection, unspecified (principal); H65.93 Unspecified nonsuppurative otitis media, bilateral; E86.0 Dehydration; Z20.822 Contact with and (suspected) exposure to COVID-19; E78.00 Pure hypercholesterolemia, unspecified; I10 Essential (primary) hypertension; I73.9 Peripheral vascular disease, unspecified; Z95.1 Presence of aortocoronary bypass graft; Z79.82 Long term (current) use of aspirin; Z79.899 Other long term (current) drug therapy
CPT/HCPCS: 99285; 96374; 71045; 87635; 96375; 84484; 80053; 83690; 85025; 87804 ×2; 81003; 36415; 93005; C9803; J7040; J3490; J2405

== ENCOUNTER → 2022-04-04 | Outpatient (CLI) | payer OTHER, MEDICARE ==
[~2022-04-04] MED LIST changes: +FAMO-136 PO; +FLUT16H NASAL; +LORA-1339 PO; +ONDA4TAB10 PO
== END | disposition home or self-care (01) ==
LOC: SHCH 14:20
PROVIDERS: ATTEND Internal Medicine Cardiovascular Disease
DX: I87.2 Venous insufficiency (chronic) (peripheral) (principal)
CPT/HCPCS: 93970

== ENCOUNTER 2022-04-19 17:11 | Emergency (ER) | payer OTHER, MEDICARE ==
[~2022-04-19] VITALS: Ht 152.4 cm; Wt 52.6 kg
[2022-04-19 17:44] LABS: APPEARANCE,URINE CLOUDY (CLEAR); BASOPHILS % (AUTO) 0.6 % (0.0-5.0); BILIRUBIN,URINE MODERATE (NEGATIVE); COLOR,URINE YELLOW (YELLOW); EOSINOPHILS % (AUTO) 0.7 % (0.0-8.0); GLUCOSE, URINE (UA) NEGATIVE (NEGATIVE); HEMATOCRIT 38.6 % (36-48); KETONES,URINE 15 mg/dL (NEGATIVE); LEUKOCYTE ESTERASE ,URINE NEGATIVE (NEGATIVE); LYMPHOCYTES % (AUTO) 12.3 % (21.0-51.0); MEAN CORPUSCULAR HEMOGLOBIN 29.1 pg (27.0-33.0); MEAN CORPUSCULAR HGB CONC 34.2 g/dL (32.0-36.0); MEAN CORPUSCULAR VOLUME 85.2 fL (79-99); MONOCYTES % (AUTO) 8.5 % (3.0-13.0); NEUTROPHILS % (AUTO) 77.5 % (40.0-77.0); NITRATE,URINE NEGATIVE (NEGATIVE); OCCULT BLOOD,URINE NEGATIVE (NEGATIVE); PLATELET COUNT (AUTO) 288 K/uL (130-400); PROTEIN,URINE 30 mg/dL (NEGATIVE); RED BLOOD CELL COUNT(AUTO) 4.53 MIL/uL (4.00-5.50); RED CELL DISTRIBUTION WIDTH 12.4 % (11.0-15.5); WHITE BLOOD COUNT (AUTO) 10.9 K/uL (4.8-10.8)
[2022-04-19 17:59] LABS: BACTERIA,URINE Few /HPF (None Seen); MUCUS,URINE Few LPF (None Seen); RBC,URINE 0-1 /HPF (0-1); SQUAMOUS EPITHELIAL CELL,UR Few /HPF (0-2); WBC,URINE 0-1 /HPF (0-1)
[2022-04-19 18:07] LABS: CARBON DIOXIDE 27 mmol/L (21-32); CHLORIDE 102 mmol/L (101-111); CREATININE 1.3 mg/dL (0.5-1.5); GLOMERULAR FILTR. RATE CALC 43 mL/min (>60); GLUCOSE,RANDOM 103 mg/dL (70-105); POTASSIUM 3.9 mmol/L (3.5-5.1); SODIUM SERUM 138 mmol/L (136-145); UREA NITROGEN, BLOOD 19 mg/dL (7-18)
[2022-04-19 18:11] LABS: ALANINE AMINOTRANSFERASE 16 U/L (12-78); ALBUMIN 4.3 g/dL (3.5-5.0); AMMONIA 13 umol/L (11-32); ASPARTATE AMINOTRANSFERASE 14 U/L (10-37)
[2022-04-19 18:14] LABS: LIPASE < 50 U/L (114-286)
[2022-04-19 18:34] LABS: B-TYPE NATRIURETIC PEPTIDE 36 pg/mL (0-100)
[2022-04-19] MEDS ORDERED: IOHEXOL 350 MG/ML 100ML INFUS..BTL IV ONE (18:44)
[2022-04-19] MEDS ORDERED: DICY20TA2 PO (20:27)
[2022-04-19 20:33] VITALS: BP 138/62
== END 2022-04-19 20:39 | disposition home or self-care (01) ==
LOC: EDH 17:11
DX: R10.84 Generalized abdominal pain (principal); R11.2 Nausea with vomiting, unspecified; I11.9 Hypertensive heart disease without heart failure; E78.00 Pure hypercholesterolemia, unspecified; I25.10 Atherosclerotic heart disease of native coronary artery without angina pectoris; Z95.1 Presence of aortocoronary bypass graft
CPT/HCPCS: 99285; 74177; 71045; 84484; 80053; 83880; 82140; 83690; 85025; 81001; 36415; 93005; Q9967

== ENCOUNTER → 2022-05-23 | Outpatient (CLI) | payer OTHER, MEDICARE ==
[~2022-05-23] MED LIST changes: +DICY20TA2 PO
== END | disposition home or self-care (01) ==
LOC: RAH 13:20
PROVIDERS: ATTEND Family Medicine
DX: Z12.31 Encounter for screening mammogram for malignant neoplasm of breast (principal)
CPT/HCPCS: 77067

== ENCOUNTER → 2022-06-13 | Outpatient (CLI) | payer OTHER, MEDICARE | END | disposition home or self-care (01) | LOC: RAH 08:52 | PROVIDERS: ATTEND Internal Medicine Gastroenterology | DX: R93.3 Abnormal findings on diagnostic imaging of other parts of digestive tract (principal); R10.30 Lower abdominal pain, unspecified | CPT/HCPCS: 76700 ==

== ENCOUNTER → 2022-09-10 | Outpatient (CLI) | payer OTHER, MEDICARE ==
[~2022-09-10] MED LIST changes: +DIATR MEGLU/DIATRIZOATE SODIUM 30 ML BOTTLE ONE
== END | disposition home or self-care (01) ==
LOC: RAH 09:39
PROVIDERS: ATTEND Internal Medicine Gastroenterology
DX: K57.30 Diverticulosis of large intestine without perforation or abscess without bleeding (principal); Z93.2 Ileostomy status
CPT/HCPCS: 74270; Q9963

== ENCOUNTER → 2023-03-17 | Outpatient (CLI) | payer OTHER, MEDICARE ==
[~2023-03-17] MED LIST changes: -DIATR MEGLU/DIATRIZOATE SODIUM 30 ML BOTTLE ONE
== END | disposition home or self-care (01) ==
LOC: SHCH 13:18
PROVIDERS: ATTEND Internal Medicine Cardiovascular Disease
DX: I11.9 Hypertensive heart disease without heart failure (principal); R94.31 Abnormal electrocardiogram [ECG] [EKG]; E78.5 Hyperlipidemia, unspecified
CPT/HCPCS: 93306

== ENCOUNTER → 2023-09-02 | Outpatient (CLI) | payer OTHER, MEDICARE | END | disposition home or self-care (01) | LOC: RAH 10:32 | PROVIDERS: ATTEND Family Medicine | DX: Z12.31 Encounter for screening mammogram for malignant neoplasm of breast (principal); S09.90XA Unspecified injury of head, initial encounter; R22.9 Localized swelling, mass and lump, unspecified; G31.9 Degenerative disease of nervous system, unspecified; X58.XXXA Exposure to other specified factors, initial encounter; Y93.89 Activity, other specified; Y92.89 Other specified places as the place of occurrence of the external cause; Y99.8 Other external cause status | CPT/HCPCS: 70450; 76604; 77067 ==

== ENCOUNTER → 2023-11-25 | Outpatient (CLI) | payer OTHER, MEDICARE ==
[~2023-11-25] MED LIST changes: +0.9%NACL 1000ML 0 ML IV ONE; +AMLO-257 PO
== END | disposition home or self-care (01) ==
LOC: EDSTATUS 11-24 12:00 → ENDO 08:46 → DAH 08:46 → LAB 08:57
PROVIDERS: ATTEND Internal Medicine Gastroenterology
DX: R13.10 Dysphagia, unspecified (principal); R12 Heartburn; Z53.8 Procedure and treatment not carried out for other reasons
CPT/HCPCS: J7030

== ENCOUNTER 2023-12-16 07:56 | Day surgery (SDC) | payer OTHER, MEDICARE ==
[~2023-12-16] VITALS: Ht 152.4 cm; Wt 53.5 kg
[2023-12-16] VITALS (12 sets, daily range): BP systolic 88–159; BP diastolic 42–74; PULSE 51–57; RESP 14–18
[~2023-12-16 07:56] MED LIST changes: -0.9%NACL 1000ML 0 ML IV ONE; -AMLO-257 PO; -CLIN-141 PO; -ONDA4TAB10 PO
[2023-12-16] MEDS ORDERED: AMLO-257 PO (08:58)
[2023-12-16] MEDS: 0.9%NACL 1000ML 1,000 ML IV ONE (09:07)
[2023-12-16] MEDS ORDERED: PROPOFOL 10 MG/ML 20ML VIAL IV ONE (09:44)
== END 2023-12-16 11:40 | disposition home or self-care (01) ==
LOC: DAH 07:56
PROVIDERS: ATTEND Internal Medicine Gastroenterology
DX: R13.10 Dysphagia, unspecified (principal); K21.00 Gastro-esophageal reflux disease with esophagitis, without bleeding; K44.9 Diaphragmatic hernia without obstruction or gangrene; K31.89 Other diseases of stomach and duodenum; I10 Essential (primary) hypertension; E78.5 Hyperlipidemia, unspecified; I25.10 Atherosclerotic heart disease of native coronary artery without angina pectoris; C64.9 Malignant neoplasm of unspecified kidney, except renal pelvis; Z86.010 Personal history of colon polyps; Z93.2 Ileostomy status; Z98.890 Other specified postprocedural states; Z79.82 Long term (current) use of aspirin; Z79.899 Other long term (current) drug therapy
CPT/HCPCS: 43239; J7030 ×2; J2704; A4620; A4215; A4223; A7002; A4222; A4221; A4663; A4606; J3490

== ENCOUNTER 2024-01-09 02:44 | Emergency (ER) | payer OTHER, MEDICARE ==
[~2024-01-09] VITALS: Ht 157.5 cm; Wt 53.5 kg
[~2024-01-09 02:44] MED LIST changes: +AMLO-257 PO; -DICY20TA2 PO; -FLUT16H NASAL; -ISOS30TA92 PO; -LISI5TAB21 PO; -LORA-1339 PO; -METO25 PO
[2024-01-09 03:19] LABS: BASOPHILS # (AUTO) 0.04 K/uL (0.00-0.20); BASOPHILS % (AUTO) 0.5 % (0.0-5.0); EOSINOPHILS % (AUTO) 5.4 % (0.0-8.0); HEMATOCRIT 36.4 % (36-48); IMMATURE GRANULOCYTE ABSOLUTE 0.01 K/uL (0-1); LYMPHOCYTES # (AUTO) 2.1 K/uL (1.0-4.8); LYMPHOCYTES % (AUTO) 27.6 % (21.0-51.0); MEAN CORPUSCULAR HEMOGLOBIN 28.1 pg (27.0-33.0); MEAN CORPUSCULAR HGB CONC 33.2 g/dL (32.0-36.0); MEAN CORPUSCULAR VOLUME 84.7 fL (79-99); MONOCYTES # (AUTO) 0.6 K/uL (0.1-1.0); MONOCYTES % (AUTO) 8.2 % (3.0-13.0); NEUTROPHILS # (AUTO) 4.3 K/uL (1.8-7.7); NEUTROPHILS % (AUTO) 58.2 % (40.0-77.0); PLATELET COUNT (AUTO) 278 K/uL (130-400); RED CELL DISTRIBUTION WIDTH 13.8 % (11.0-15.5); WHITE BLOOD COUNT (AUTO) 7.4 K/uL (4.8-10.8)
[2024-01-09] MEDS: HYDRALAZINE 20MG/ML VIAL IV ONE (03:20)
[2024-01-09 03:30] LABS: INR <= 0.93 (0.85-1.15); PROTHROMBIN TIME 10.2 SEC (9.6-11.6)
[2024-01-09 03:31] LABS: PARTIAL THROMBOPLASTIN TIME 26.2 SEC (26.3-35.5)
[2024-01-09 04:22] LABS: POTASSIUM 4.7 mmol/L (3.5-5.1)
[2024-01-09 04:26] LABS: ALBUMIN 3.6 g/dL (3.5-5.0); BILIRUBIN,TOTAL 0.4 mg/dL (0.2-1.0); TOTAL PROTEIN, SERUM 7.1 g/dL (6.0-8.3)
[2024-01-09 04:46] VITALS: BP 143/64; PULSE 52; RESP 14; O2SAT 100
== END 2024-01-09 05:42 | disposition home or self-care (01) ==
LOC: EDH 02:44
DX: I10 Essential (primary) hypertension (principal); E78.00 Pure hypercholesterolemia, unspecified; D69.6 Thrombocytopenia, unspecified; Z79.82 Long term (current) use of aspirin; Z79.899 Other long term (current) drug therapy; Z98.890 Other specified postprocedural states
CPT/HCPCS: 99285; 96374; 70450; 71045; 84484; 80053; 85025; 85610; 85730; 36415; 93005; J0360

== ENCOUNTER 2024-01-17 19:21 | Emergency (ER) | payer OTHER, MEDICARE ==
[~2024-01-17] VITALS: Ht 152.4 cm; Wt 54.0 kg
[2024-01-17 21:29] LABS: APPEARANCE,URINE CLOUDY (CLEAR); BILIRUBIN,URINE NEGATIVE (NEGATIVE); COLOR,URINE YELLOW (YELLOW); GLUCOSE, URINE (UA) NEGATIVE (NEGATIVE); KETONES,URINE NEGATIVE (NEGATIVE); LEUKOCYTE ESTERASE ,URINE 25 Leu/uL (NEGATIVE); NITRATE,URINE NEGATIVE (NEGATIVE); OCCULT BLOOD,URINE NEGATIVE (NEGATIVE); PROTEIN,URINE 50 mg/dL (NEGATIVE); UROBILINOGEN,URINE 0.2 mg/dL (0.2-1.0)
[2024-01-17 21:45] LABS: BACTERIA,URINE FEW /HPF (None Seen); MUCUS,URINE RARE LPF (None Seen); SQUAMOUS EPITHELIAL CELL,UR FEW /HPF (0-2)
[2024-01-17 22:00] LABS: BASOPHILS # (AUTO) 0.03 K/uL (0.00-0.20); BASOPHILS % (AUTO) 0.4 % (0.0-5.0); EOSINOPHILS # (AUTO) 0.11 K/uL (0.00-0.70); EOSINOPHILS % (AUTO) 1.5 % (0.0-8.0); HEMATOCRIT 36.8 % (36-48); IMMATURE GRANULOCYTE ABSOLUTE 0.02 K/uL (0-1); LYMPHOCYTES % (AUTO) 14.1 % (21.0-51.0); MEAN CORPUSCULAR HEMOGLOBIN 27.9 pg (27.0-33.0); MEAN CORPUSCULAR HGB CONC 32.3 g/dL (32.0-36.0); MEAN CORPUSCULAR VOLUME 86.4 fL (79-99); MONOCYTES # (AUTO) 0.8 K/uL (0.1-1.0); MONOCYTES % (AUTO) 10.1 % (3.0-13.0); NEUTROPHILS # (AUTO) 5.4 K/uL (1.8-7.7); NEUTROPHILS % (AUTO) 73.6 % (40.0-77.0); PLATELET COUNT (AUTO) 284 K/uL (130-400); RED BLOOD CELL COUNT(AUTO) 4.26 MIL/uL (4.00-5.50); RED CELL DISTRIBUTION WIDTH 13.9 % (11.0-15.5); WHITE BLOOD COUNT (AUTO) 7.4 K/uL (4.8-10.8)
[2024-01-17 22:23] LABS: CREATININE 2.2 mg/dL (0.5-1.0); POTASSIUM 4.6 mmol/L (3.5-5.1)
[2024-01-17] MEDS ORDERED: CEPH500B PO (22:52)
[2024-01-17] MEDS: CEFTRIAXONE 1G VIAL IM ONE (23:16)
[2024-01-17] MEDS: ONDANSETRON 4MG INJ IVP ONE (23:43)
[2024-01-17] MEDS: MORPHINE 2 MG SYG IVP ONE (23:44)
[2024-01-18 01:00] VITALS: BP 111/53; PULSE 55; RESP 16; O2SAT 98
== END 2024-01-18 01:09 | disposition home or self-care (01) ==
LOC: EDH 19:21
DX: N39.0 Urinary tract infection, site not specified (principal); I10 Essential (primary) hypertension; Z79.82 Long term (current) use of aspirin
CPT/HCPCS: 99284; 96374; 96375; 80048; 85025; 81001 ×2; 36415; 96372; J2270; J0696; J2405

== ENCOUNTER → 2024-01-23 | Outpatient (CLI) | payer OTHER, MEDICARE ==
[~2024-01-23] MED LIST changes: +CEPH500B PO
== END | disposition home or self-care (01) ==
LOC: SHCH 08:48
PROVIDERS: ATTEND Internal Medicine Cardiovascular Disease
DX: I87.2 Venous insufficiency (chronic) (peripheral) (principal); I87.1 Compression of vein; R07.9 Chest pain, unspecified; R94.31 Abnormal electrocardiogram [ECG] [EKG]
CPT/HCPCS: 93970

== ENCOUNTER → 2024-03-02 | Outpatient (CLI) | payer OTHER, MEDICARE ==
[~2024-03-02] MED LIST changes: +IOHEXOL 350 MG/ML 100ML INFUS..BTL IV ONE; +METOPROLOL TARTRATE 1 MG/ML 5ML VIAL IV ONE; +NITROGLYCERIN 4.1 GM SPRAY TL ONE
== END | disposition home or self-care (01) ==
LOC: RAH 07:58
PROVIDERS: ATTEND Internal Medicine Cardiovascular Disease
DX: R07.9 Chest pain, unspecified (principal); R94.31 Abnormal electrocardiogram [ECG] [EKG]; M47.815 Spondylosis without myelopathy or radiculopathy, thoracolumbar region
CPT/HCPCS: 75574; J3490; Q9967

== ENCOUNTER → 2024-04-05 | Outpatient (CLI) | payer OTHER, MEDICARE ==
[~2024-04-05] MED LIST changes: -IOHEXOL 350 MG/ML 100ML INFUS..BTL IV ONE; -METOPROLOL TARTRATE 1 MG/ML 5ML VIAL IV ONE; -NITROGLYCERIN 4.1 GM SPRAY TL ONE
== END | disposition home or self-care (01) ==
LOC: SHCH 14:29
PROVIDERS: ATTEND Internal Medicine Cardiovascular Disease
DX: R07.9 Chest pain, unspecified (principal); R94.31 Abnormal electrocardiogram [ECG] [EKG]
CPT/HCPCS: 93306

== ENCOUNTER 2024-05-12 16:15 | Emergency (ER) | payer OTHER, MEDICARE ==
[~2024-05-12] VITALS: Ht 152.4 cm; Wt 52.6 kg
[2024-05-12 16:19] VITALS: BP 126/76; PULSE 66; RESP 20; TEMP 98
[2024-05-12 16:52] LABS: BASOPHILS # (AUTO) 0.06 K/uL (0.00-0.20); BASOPHILS % (AUTO) 0.8 % (0.0-5.0); EOSINOPHILS # (AUTO) 0.29 K/uL (0.00-0.70); EOSINOPHILS % (AUTO) 3.7 % (0.0-8.0); HEMATOCRIT 34.8 % (36-48); IMMATURE GRANULOCYTE ABSOLUTE 0.02 K/uL (0-1); LYMPHOCYTES % (AUTO) 25.4 % (21.0-51.0); MEAN CORPUSCULAR HEMOGLOBIN 28.4 pg (27.0-33.0); MEAN CORPUSCULAR HGB CONC 33.6 g/dL (32.0-36.0); MEAN CORPUSCULAR VOLUME 84.5 fL (79-99); MONOCYTES # (AUTO) 0.7 K/uL (0.1-1.0); MONOCYTES % (AUTO) 8.5 % (3.0-13.0); NEUTROPHILS # (AUTO) 4.8 K/uL (1.8-7.7); NEUTROPHILS % (AUTO) 61.3 % (40.0-77.0); PLATELET COUNT (AUTO) 305 K/uL (130-400); RED BLOOD CELL COUNT(AUTO) 4.12 MIL/uL (4.00-5.50); RED CELL DISTRIBUTION WIDTH 13.4 % (11.0-15.5); WHITE BLOOD COUNT (AUTO) 7.9 K/uL (4.8-10.8)
[2024-05-12 16:59] LABS: CREATININE 1.3 mg/dL (0.5-1.0); POTASSIUM 4.8 mmol/L (3.5-5.1)
[2024-05-12 17:16] LABS: B-TYPE NATRIURETIC PEPTIDE 24 pg/mL (0-100)
[2024-05-12] MEDS: dexaMETHasone SOD PHOSPHATE 4 MG/ML 1ML VIAL IVP ONE (18:20)
[2024-05-12] MEDS: ketOROlac 30MG VIAL (30MG/ML) IVP ONE (18:21)
[2024-05-12] MEDS ORDERED: ACET-2079 PO (18:39)
== END 2024-05-12 19:02 | disposition home or self-care (01) ==
LOC: EDH 16:15
DX: M79.605 Pain in left leg (principal); M94.0 Chondrocostal junction syndrome [Tietze]; I12.9 Hypertensive chronic kidney disease with stage 1 through stage 4 chronic kidney disease, or unspecified chronic kidney disease; N18.9 Chronic kidney disease, unspecified; D63.1 Anemia in chronic kidney disease; I25.10 Atherosclerotic heart disease of native coronary artery without angina pectoris; E78.00 Pure hypercholesterolemia, unspecified; I73.9 Peripheral vascular disease, unspecified; Z95.1 Presence of aortocoronary bypass graft; Z79.82 Long term (current) use of aspirin; Z79.2 Long term (current) use of antibiotics; Z79.899 Other long term (current) drug therapy
CPT/HCPCS: 99285; 96374; 93926; 71045; 96375; 82550; 84484 ×2; 80048; 83880; 85025; 36415; 93005; J1100; J1885

== ENCOUNTER 2024-06-20 17:46 | Emergency (ER) | payer OTHER, MEDICARE ==
[~2024-06-20] VITALS: Ht 152.4 cm; Wt 53.5 kg
[~2024-06-20 17:46] MED LIST changes: +ACET-2079 PO
[2024-06-20 18:22] LABS: APPEARANCE,URINE CLEAR (CLEAR); BILIRUBIN,URINE NEGATIVE (NEGATIVE); COLOR,URINE COLORLESS (YELLOW); GLUCOSE, URINE (UA) NEGATIVE (NEGATIVE); KETONES,URINE NEGATIVE (NEGATIVE); LEUKOCYTE ESTERASE ,URINE NEGATIVE Leu/uL (NEGATIVE); NITRATE,URINE NEGATIVE (NEGATIVE); OCCULT BLOOD,URINE NEGATIVE (NEGATIVE); PH,URINE 7.5 (5.0-8.0); PROTEIN,URINE NEGATIVE (NEGATIVE); UROBILINOGEN,URINE 0.2 mg/dL (0.2-1.0)
[2024-06-20 18:23] LABS: ADD UA MICROSCOPIC YES
[2024-06-20 18:25] LABS: MUCUS,URINE RARE LPF (None Seen); RBC,URINE 0-1 /HPF (0-1)
[2024-06-20 18:55] LABS: BASOPHILS # (AUTO) 0.06 K/uL (0.00-0.20); BASOPHILS % (AUTO) 0.8 % (0.0-5.0); EOSINOPHILS # (AUTO) 0.42 K/uL (0.00-0.70); EOSINOPHILS % (AUTO) 5.3 % (0.0-8.0); HEMATOCRIT 35.2 % (36-48); IMMATURE GRANULOCYTE ABSOLUTE 0.03 K/uL (0-1); LYMPHOCYTES % (AUTO) 25.6 % (21.0-51.0); MEAN CORPUSCULAR HEMOGLOBIN 28.4 pg (27.0-33.0); MEAN CORPUSCULAR VOLUME 86.3 fL (79-99); MONOCYTES # (AUTO) 0.5 K/uL (0.1-1.0); MONOCYTES % (AUTO) 5.8 % (3.0-13.0); NEUTROPHILS # (AUTO) 4.9 K/uL (1.8-7.7); NEUTROPHILS % (AUTO) 62.1 % (40.0-77.0); PLATELET COUNT (AUTO) 318 K/uL (130-400); RED BLOOD CELL COUNT(AUTO) 4.08 MIL/uL (4.00-5.50); RED CELL DISTRIBUTION WIDTH 12.7 % (11.0-15.5); WHITE BLOOD COUNT (AUTO) 7.9 K/uL (4.8-10.8)
[2024-06-20 19:05] LABS: POTASSIUM 4.2 mmol/L (3.5-5.1)
[2024-06-20 19:23] VITALS: TEMP 97.6
[2024-06-20] MEDS: ketOROlac 15MG/ML VIAL (15MG/ML) IV ONE (19:31)
[2024-06-20] MEDS: acetaMINOPHEN 325 MG TAB PO ONE (19:31)
[2024-06-20] MEDS: CYCLOBENZAPRINE HCL 10 MG TABLET PO ONE (19:32)
[2024-06-20] MEDS ORDERED: CYCL10TA16 PO (20:27)
[2024-06-20 20:49] VITALS: BP 142/65; PULSE 61; RESP 20; O2SAT 97
== END 2024-06-20 21:25 | disposition home or self-care (01) ==
LOC: EDH 17:46
DX: G89.29 Other chronic pain (principal); M54.6 Pain in thoracic spine; E78.00 Pure hypercholesterolemia, unspecified; I10 Essential (primary) hypertension; I25.10 Atherosclerotic heart disease of native coronary artery without angina pectoris; Z79.82 Long term (current) use of aspirin; Z95.1 Presence of aortocoronary bypass graft; Z98.890 Other specified postprocedural states
CPT/HCPCS: 99285; 96374; 71045; 84484; 80048; 85025; 81001; 36415; 72072; 93005; J1885

== ENCOUNTER → 2025-05-26 | Outpatient (CLI) | payer OTHER, MEDICAID ==
[~2025-05-26] MED LIST changes: +CYCL10TA16 PO
--- NOTE | 2025-05-26 17:50 | HMCIMG ---
EXAM: US Abdomen Limited, Right Upper Quadrant. CLINICAL HISTORY: Abnormal serum enzymes. Elevated alkaline phosphatase. TECHNIQUE: Real-time ultrasound of the right upper quadrant with image documentation. COMPARISON: Comparison with prior ultrasound (06/13/2022) and CT (04/19/2022). FINDINGS: LIVER: Measures 13 cm in craniocaudal dimension. Echotexture is mildly coarse. No focal hepatic lesion identified. Mildly coarse hepatic echotexture, nonspecific, may reflect underlying hepatocellular disease. GALLBLADDER: Wall thickness is 2.8 mm. No cholelithiasis or pericholecystic fluid is demonstrated. COMMON BILE DUCT: Measures 5 mm, within normal limits. PANCREAS: Visualized portions appear within normal limits. The distal pancreas is obscured by overlying bowel gas. RIGHT KIDNEY: Measures 10.0 x 4.5 x 3.1 cm. A round, hypoechoic to intermediate echogenicity structure measuring 0.8 x 0.7 x 0.7 cm is seen at the inferior pole, most consistent with an indeterminate cyst follow-up with CT with iv contrast. No hydronephrosis. IMPRESSION: 1. Mildly coarse hepatic echotexture, nonspecific, may reflect underlying hepatocellular disease. 2. Gallbladder and common bile duct within normal limits. 3. Incidental small right renal cyst (0.8 cm). Recommend follow-up with CT with IV contrast. /[place]
== END | disposition home or self-care (01) ==
LOC: RAH 08:06
PROVIDERS: ATTEND Family Medicine
DX: R74.8 Abnormal levels of other serum enzymes (principal)
CPT/HCPCS: 76705

== ENCOUNTER → 2025-07-04 | Outpatient (CLI) | payer OTHER, MEDICAID ==
[~2025-07-04] MED LIST changes: +IOHEXOL 350 MG/ML 100ML INFUS..BTL IV ONE
--- NOTE | 2025-07-05 10:36 | HMCIMG ---
EXAMINATION: CT Abdomen with and without intravenous contrast. CLINICAL HISTORY: Right renal cyst, as per abdominal ultrasound. TECHNIQUE: Axial CT of the abdomen without intravenous contrast. Multiplanar reformations were generated and reviewed. CONTRAST: No intravenous contrast. COMPARISON: None provided. FINDINGS: LUNG BASES: Clear. No pleural effusions. LIVER: Tiny calcific speck in segment 6 suggests old granuloma. Otherwise unremarkable. No focal hepatic lesion. GALLBLADDER AND BILE DUCTS: Unremarkable. No radio-opaque gallstones. No biliary ductal dilatation. PANCREAS: Relatively atrophic without calcification. SPLEEN: Unremarkable. ADRENAL GLANDS: Unremarkable. KIDNEYS AND VISUALIZED URETERS: Right kidney measures 9.6 x 3.8 cm. Left kidney measures 9.4 x 4.2 cm. Simple cortical cyst in the interpolar region of the left kidney measures 1.6 x 1.4 cm and indents the sinus fat without a solid component. There is a 6 mm lesion in the right kidney (image 36 series 3) which was too small to characterize, however this appears to have solid components and is suspicious. If indicated, MRI can be performed. No hydronephrosis or hydroureter. No urinary calculi. STOMACH AND VISUALIZED BOWEL: Unremarkable. No bowel obstruction, enteritis, or colitis. APPENDIX: No CT features of acute appendicitis. PERITONEUM: No free fluid or free air. LYMPH NODES: No lymphadenopathy. VASCULATURE: Atherosclerotic calcification in the abdominal aorta and bilateral iliac arteries. Stent in position in the left iliac vein. BONES: Mild spondylotic changes in the spine. No aggressive or acute osseous pathology. IMPRESSION: Simple cortical cyst in the interpolar region of the left kidney measures 1.6 x 1.4 cm - Bosniak type 1 category. 6 mm lesion in the right kidney which was too small to characterize, however this appears to have solid components and is suspicious. If indicated, MRI can be performed. /[place]
== END | disposition home or self-care (01) ==
LOC: RAH 08:36
PROVIDERS: ATTEND Family Medicine
DX: N28.1 Cyst of kidney, acquired (principal); R93.89 Abnormal findings on diagnostic imaging of other specified body structures; I70.0 Atherosclerosis of aorta; M47.817 Spondylosis without myelopathy or radiculopathy, lumbosacral region
CPT/HCPCS: 74170; Q9967